=== PATIENT | female | born 1955 | race Caucasian/White ===

== ENCOUNTER → 2016-11-19 | Outpatient (CLI) | payer OTHER ==
--- NOTE | ~2016-11-19 | ENPV ---
Carotid Duplex Study Demographics Patient Name HÉCTOR KANG Date of Study 11/19/2016 Patient Number [id number] Gender Female Date of 1955 Age 61 Visit Number [id number] Height Accession Number [id number] Weight Room Number BSA BMI Referring Gretel Cline MD Interpreting Jey Michel MD Physician Physician Physician Ordering Gretel Cline Social Media Developer Physician [employer] Developer Rosa Almendarez [facility] [[email or web address]], T Conclusions Summary There is a mild amount of smooth homogeneous plaque in the right carotid bifurcation . The right vertebral artery is antegrade. There is a mild amount of smooth homogeneous plaque in the left carotid bifurcation . The left vertebral artery is antegrade. Bilateral 50% stenosis Procedure Type of Study: Cerebral:Carotid, Carotid Doppler Bilateral. Indications for Study:Bruit. Appropriate Use Criteria:7 Blood Pressure:Right arm 168/86 mmHg.Left arm 167/75 mmHg. Patient Status:Routine. Study Location:Vascular Lab. Technical Quality:Limited visualization due to body habitus. Velocities are measured in cm/s ; Diameters are measured in cm Carotid Right Measurements Carotid Left Measurements + +--------+--------+ + + + +--------+ --------+ + + !Location !PSV !EDV !Angle !%Stenosis ! !Location !PSV ! EDV !Angle !%Stenosis ! + +--------+--------+ + + + +--------+ --------+ + + !Prox CCA !148 !26 !60 ! ! !Prox CCA !177 ! 37 !60 ! ! + +--------+--------+ + + + +--------+ --------+ + + !Dist CCA !125 !28 !60 ! ! !Dist CCA !115 ! 33 !60 ! ! + +--------+--------+ + + + +--------+ --------+ + + !Prox ICA !79 !24 !60 ! ! !Prox ICA !102 ! 25 !60 ! ! + +--------+--------+ + + + +--------+ --------+ + + !Dist ICA !144 !44 !60 ! ! !Dist ICA !145 ! 51 !60 ! ! + +--------+--------+ + + + +--------+ --------+ + + !Prox ECA !128 !28 !60 ! ! !Prox ECA !122 ! 25 !60 ! ! + +--------+--------+ + + + +--------+ --------+ + + !Vertebral !84 !25 !60 ! ! !Vertebral !59 ! 9 !60 ! ! + +--------+--------+ + + + +--------+ --------+ + + !Subclavian !143 !8 !60 ! ! !Subclavian !149 ! 3 !60 ! ! + +--------+--------+ + + + +--------+ --------+ + + - There is antegrade vertebral flow noted on the right side. - There is antegrade verte bral flow noted on the left side. - Add'l Measurements:Subclavian PRV 143 cm/sICAPSV/CCAPSV - Add'l Measurements:Subcl espinoza PRV 149 cm/sICAPSV/CCAPSV 0.97.ICAEDV/CCAEDV 1.66. 0.82.ICAEDV/CCAEDV 1.37. Impressions Right Impression There is a mild amount of smooth homogeneous plaque in the right carotid bifurcation . The right vertebral artery is antegrade. Left Impression There is a mild amount of smooth homogeneous plaque in the left carotid bifurcation . The left vertebral artery is antegrade. Signature dtt: DES SAMS dtabdulkadir: 11/19/16 1234 Physician Self Edit
== END | disposition disaster alternative care site (69) ==
LOC: GCAR 12:28
DX: R09.89 Other specified symptoms and signs involving the circulatory and respiratory systems (principal); I65.23 Occlusion and stenosis of bilateral carotid arteries